=== PATIENT | female | born 1955 | race Caucasian/White ===

== ENCOUNTER 2022-01-04 17:39 | Emergency (ER) | payer BC ==
[~2022-01-04] VITALS: Ht 160 cm; Wt 63.6 kg
[~2022-01-04 17:39] MED LIST: ONDA4TAB59 PO
[2022-01-04 19:02] LABS: BASOPHILS % (AUTO) 0.2 % (0-1); EOSINOPHILS % (AUTO) 0.3 % (0-6); HEMATOCRIT 40.6 % (35.0-45.0); HEMOGLOBIN 13.6 g/dl (12.0-16.0); LYMPHOCYTES # (AUTO) 1.3 X10'3 (1.1-4.8); LYMPHOCYTES % (AUTO) 10.6 % (21-51); MEAN CORPUSCULAR HEMOGLOBIN 29.1 PG (27.0-31.0); MEAN CORPUSCULAR HGB CONC 33.5 g/dL (33.0-36.5); MEAN CORPUSCULAR VOLUME 86.8 FL (78-98); MEAN PLATELET VOLUME 10.4 FL (7.4-10.4); MONOCYTES # (AUTO) 1.1 X10'3 (0-0.9); MONOCYTES % (AUTO) 8.9 % (2-12); NEUTROPHILS # (AUTO) 9.5 X10'3 (1.8-7.7); PLATELET COUNT 135 X10'3 (140-440); RED BLOOD COUNT 4.68 X10'6 (4.20-5.60); RED CELL DISTRIBUTION WIDTH 13.3 % (11.5-14.5); WHITE BLOOD COUNT 11.8 X10'3 (4.5-11.0)
[2022-01-04 19:09] LABS: ALANINE AMINOTRANSFERASE 81 U/L (12-78); ALBUMIN 4.1 G/DL (3.4-5.0); ALBUMIN/GLOBULIN RATIO 1.2 (1.1-1.5); ALKALINE PHOSPHATASE 89 IU/L (46-116); ANION GAP 7 (8-16); ASPARTATE AMINO TRANSFERASE 53 U/L (10-37); BILIRUBIN,TOTAL 0.7 MG/DL (0.1-1.0); BLOOD UREA NITROGEN 20 MG/DL (7-18); BUN/CREATININE RATIO 21.7 (6.6-38.0); CHLORIDE 107 MMOL/L (99-107); CREATININE 0.92 MG/DL (0.40-0.90); GLUCOSE 165 MG/DL (70-104); LIPASE 118 U/L (73-393); POTASSIUM 3.8 MMOL/L (3.5-5.1); SODIUM 141 MMOL/L (135-145); TOTAL CARBON DIOXIDE 27.5 MMOL/L (24-32); TOTAL PROTEIN 7.5 G/DL (6.4-8.2); eGFR 61 ML/MIN
[2022-01-04] MEDS ORDERED: morphine 4 MG/ML inj SYRINge IV ONE (21:20)
[2022-01-04] MEDS ORDERED: ondansetron/PF 4mg/2ml inj IV ONE (21:20)
[2022-01-04] MEDS ORDERED: normal saline 1000ml 1,000 ML IV ONE (21:20)
[2022-01-04] MEDS ORDERED: iohexol 300mg/ml 100ml inj. ONE (21:21)
[2022-01-04] MEDS ORDERED: LIDOcaine Viscous 15ml cup MM ONE (22:45)
[2022-01-04] MEDS ORDERED: ketorolac trometh. 30mg/ml inj. IV ONE (22:45)
[2022-01-04] MEDS ORDERED: famotidine/PF 10 mg/ml inj IV ONE (22:45)
[2022-01-04] MEDS ORDERED: mag hydrox/Alum hydrox/simeth 30ml oral suspension PO ONE (22:45)
[2022-01-04] MEDS ORDERED: fentaNYL/PF 50MCG/1 ML 2ML syringe IV ONE (22:45)
[2022-01-04] MEDS ORDERED: pantoprazole 40MG/NS 100ML BAG 100 ML IV ONE (22:45)
[2022-01-04] MEDS ORDERED: LORazepam 2 mg/ml vial IV ONE (22:55)
[2022-01-05] MEDS ORDERED: HYDR-3965 PO (00:29)
[2022-01-05] MEDS ORDERED: PANT-47 PO (00:29)
[2022-01-05 00:30] LABS: CLARITY,URINE CLEAR (Clear); COLOR,URINE YELLOW (Yellow); GLUCOSE, URINE NEGATIVE (Neg); KETONES,URINE NEGATIVE (Neg); LEUKOCYTE ESTERASE ,URINE SMALL (Neg); NITRITES, URINE NEGATIVE (Neg); OCCULT BLOOD,URINE NEGATIVE (Neg); PH,URINE 5.5 (4.8-8.0); PROTEIN,URINE NEGATIVE (Neg); UROBILINOGEN,URINE 0.2 E.U/dL (0.2-1.0)
[2022-01-05 00:45] LABS: UA COLLECTION TYPE CLN CATCH MIDSTREAM
[2022-01-05 00:46] LABS: BACTERIA,URINE 1+ /HPF (Neg); RBC,URINE NONE SEEN /HPF (0-2); SQUAMOUS EPITHELIAL CELL,UR FEW /LPF (FEW); WBC CLUMPS,URINE FEW /HPF (NEGATIVE)
[2022-01-05 01:00] VITALS: BP 128/72
== END 2022-01-05 01:03 | disposition home or self-care (01) ==
LOC: ER 17:40
DX: G89.18 Other acute postprocedural pain (principal); R10.84 Generalized abdominal pain; R60.0 Localized edema; E11.9 Type 2 diabetes mellitus without complications; Z79.899 Other long term (current) drug therapy
CPT/HCPCS: 36415; 74177; 80053; 81001; 83690; 83880; 84145; 85025; 87088; 96361; 96374; 96375; 99285; C9113; J1885; J2060; J2270; J2405; J3010; J3490; J7030; Q9967

== ENCOUNTER 2024-02-18 05:03 | Observation (INO) | payer BC ==
[~2024-02-18] VITALS: Ht 160 cm; Wt 74.1 kg
[~2024-02-18 05:03] MED LIST changes: +PANT-47 PO
[2024-02-18 06:03] LABS: BASOPHILS % (AUTO) 0.7 % (0-1); EOSINOPHILS # (AUTO) 0.1 X10'3 (0-0.9); EOSINOPHILS % (AUTO) 3.6 % (0-6); HEMATOCRIT 37.1 % (35.0-45.0); HEMOGLOBIN 12.1 g/dl (12.0-16.0); LYMPHOCYTES % (AUTO) 23.9 % (21-51); MEAN CORPUSCULAR HEMOGLOBIN 29.2 PG (27.0-31.0); MEAN CORPUSCULAR HGB CONC 32.6 g/dL (33.0-36.5); MEAN CORPUSCULAR VOLUME 89.4 FL (78-98); MEAN PLATELET VOLUME 10.3 FL (7.4-10.4); MONOCYTES # (AUTO) 0.4 X10'3 (0-0.9); NEUTROPHILS # (AUTO) 2.5 X10'3 (1.8-7.7); NEUTROPHILS % (AUTO) 62.8 % (42-75); PLATELET COUNT 101 X10'3 (140-440); RED BLOOD COUNT 4.15 X10'6 (4.20-5.60); RED CELL DISTRIBUTION WIDTH 13.8 % (11.5-14.5); WHITE BLOOD COUNT 4.1 X10'3 (4.5-11.0)
[2024-02-18 06:14] LABS: D-DIMER 0.31 MG/L FEU (0-0.50)
[2024-02-18 06:17] LABS: ALANINE AMINOTRANSFERASE 35 U/L (12-78); ALBUMIN 3.4 G/DL (3.4-5.0); ALKALINE PHOSPHATASE 132 IU/L (46-116); ANION GAP 4 (8-16); ASPARTATE AMINO TRANSFERASE 18 U/L (10-37); BILIRUBIN,TOTAL 0.4 MG/DL (0.1-1.0); BLOOD UREA NITROGEN 17 MG/DL (7-18); BUN/CREATININE RATIO 19.5 (10.0-20.0); CHLORIDE 97 MMOL/L (99-107); CREATININE 0.87 MG/DL (0.40-0.90); GLUCOSE 168 MG/DL (70-104); SODIUM 130 MMOL/L (135-145); TOTAL CARBON DIOXIDE 28.6 MMOL/L (24-32); TOTAL PROTEIN 6.7 G/DL (6.4-8.2); eCRCL 52 ML/MIN; eGFR 65 ML/MIN
[2024-02-18 06:25] LABS: PRO BRAIN NATRIURETIC PEPTIDE 111 PG/ML (0-125)
[2024-02-18 07:03] LABS: MAGNESIUM 1.8 MG/DL (1.5-2.4)
[2024-02-18] MEDS ORDERED: CYCL-1 PO (07:11)
[2024-02-18] MEDS: orphenadrine citrate 60mg/2ml inj. IM ONE (07:18)
[2024-02-18] MEDS: BUPROPION HCL 150MG XL 24 HR 150 MG TAB PO ONE (08:01)
[2024-02-18] MEDS ORDERED: NAPR-56 PO (09:18)
[2024-02-18] MEDS: potassium Cl 20 mEq SR tablet PO ONE (09:23)
[2024-02-18] MEDS: naproxen 500mg tablet PO ONE (09:25)
[2024-02-18] MEDS: magnesium oxide 400mg tablet PO ONE (09:37)
[2024-02-18 09:54] LABS: C-REACTIVE PROTEIN 0.12 MG/DL (0.0-0.5)
[2024-02-18] MEDS: HYDROmorphone 1 mg/ml syringe IM ONE (11:25)
[2024-02-18] MEDS ORDERED: potassium Cl 40MEQ/1/2NS 520ml 520 ML IV PRN (12:25)
[2024-02-18] MEDS ORDERED: magnesium sulf-water 2g/50mL 50 ML IV PRN (12:25)
[2024-02-18] MEDS ORDERED: magnesium sulf-water 4G/100mL 100 ML IV PRN (12:25)
[2024-02-18] MEDS ORDERED: potassium Cl 20 mEq SR tablet PO PRN (12:25)
[2024-02-18] MEDS ORDERED: acetaminophen 325mg tablet PO PRN (12:25)
[2024-02-18] MEDS ORDERED: magnesium Cl slow-release 64mg tablet PO PRN (12:25)
[2024-02-18 12:40] LABS: URINE AMPHETAMINE SCREEN NEGATIVE (Neg); URINE BARBITUATE SCREEN NEGATIVE (Neg); URINE BENZODIAZEPINES SCREEN NEGATIVE (Neg); URINE CANNABINOID SCREEN NEGATIVE (Neg); URINE COCAINE SCREEN NEGATIVE (Neg); URINE METHADONE SCREEN NEGATIVE (Neg); URINE OPIATE SCREEN POSITIVE (Neg); URINE PHENCYCLIDINE SCREEN NEGATIVE (Neg)
[2024-02-18] MEDS ORDERED: INSU200I4 SQ (13:44)
[2024-02-18] MEDS ORDERED: GABA300C PO (13:44)
[2024-02-18] MEDS ORDERED: METF-900 PO (13:44)
[2024-02-18] MEDS ORDERED: FURO20TA4 PO (13:44)
[2024-02-18] MEDS ORDERED: ALBUTEROL INH (13:44)
[2024-02-18] MEDS ORDERED: INSU100I8 SQ (13:44)
[2024-02-18] MEDS ORDERED: TRAM50TA2 PO (13:44)
[2024-02-18] MEDS ORDERED: BUPR-561 PO (13:44)
[2024-02-18] MEDS ORDERED: IBUP-1984 PO (13:44)
[2024-02-18] MEDS ORDERED: CARV12.549 PO (13:44)
[2024-02-18] MEDS ORDERED: ATOR40TA72 PO (13:44)
[2024-02-18] MEDS ORDERED: LEVO100T78 PO (13:44)
[2024-02-18] MEDS ORDERED: LORazepam 2 mg/ml vial IV ONE (14:25)
[2024-02-18 15:46] LABS: HEMOGLOBIN A1C 9.3 % (4.5-6.2)
[2024-02-18] MEDS: ondansetron/PF 4mg/2ml inj IV PRN (16:06)
[2024-02-18] MEDS: morphine 2 MG/ML inj. syringe IV PRN (16:08)
[2024-02-18] MEDS: diazepam inj 5 MG/ML inj. IV ONE (16:30)
[2024-02-18 19:00] VITALS: BP 146/69; PULSE 72
[2024-02-18] MEDS: potassium Cl 20 mEq SR tablet PO PRN (19:06)
[2024-02-18] MEDS: HYDROcodone/acetaminophen 5mg/325mg tablet PO PRN (19:08)
[2024-02-18] MEDS: K and/or MAG REPLACEMENT MC SCH (20:00)
[2024-02-18] MEDS: normal saline 1000ml 1,000 ML IV SCH (21:28)
[2024-02-18] MEDS: furosemide 20MG tablet PO ONE (21:28)
[2024-02-18] MEDS: gabapentin 300mg capsule PO ONE (21:28)
[2024-02-18 21:51] VITALS: PULSE 78; RESP 16; O2SAT 96
[2024-02-18] MEDS: albuterol 2.5 MG/3 ML nebule NEB PRN (21:51)
[2024-02-18 21:58] VITALS: PULSE 71; RESP 16
[2024-02-18 22:00] VITALS: BP 152/66; PULSE 86; RESP 17; TEMP 96.8; O2SAT 96
[2024-02-18 22:48] VITALS: BP 159/95; PULSE 73; RESP 20
[2024-02-18] MEDS: HYDROmorphone inj. 0.5 MG/0.5 ML DISP.SYRIN IV ONE (23:20)
[2024-02-19 01:36] VITALS: BP 128/69; PULSE 65; RESP 16; TEMP 98.5; O2SAT 96
[2024-02-19] MEDS: HYDROmorphone inj. 0.5 MG/0.5 ML DISP.SYRIN IV ONE (05:12)
[2024-02-19 05:22] VITALS: BP 127/69; PULSE 63
[2024-02-19 05:37] LABS: ALBUMIN 3.2 G/DL (3.4-5.0); ANION GAP 6 (8-16); BLOOD UREA NITROGEN 12 MG/DL (7-18); BUN/CREATININE RATIO 15.8 (10.0-20.0); CALCIUM 8.5 MG/DL (8.5-10.1); CHLORIDE 107 MMOL/L (99-107); CREATININE 0.76 MG/DL (0.40-0.90); GLUCOSE 171 MG/DL (70-104); SODIUM 140 MMOL/L (135-145); TOTAL CARBON DIOXIDE 26.7 MMOL/L (24-32); eCRCL 59 ML/MIN; eGFR 76 ML/MIN
[2024-02-19 05:56] LABS: BASOPHILS % (AUTO) 0.5 % (0-1); EOSINOPHILS # (AUTO) 0.1 X10'3 (0-0.9); EOSINOPHILS % (AUTO) 3.1 % (0-6); HEMATOCRIT 38.5 % (35.0-45.0); HEMOGLOBIN 12.7 g/dl (12.0-16.0); LYMPHOCYTES % (AUTO) 24.1 % (21-51); MEAN CORPUSCULAR HEMOGLOBIN 29.6 PG (27.0-31.0); MEAN CORPUSCULAR HGB CONC 32.9 g/dL (33.0-36.5); MEAN PLATELET VOLUME 10.1 FL (7.4-10.4); MONOCYTES # (AUTO) 0.4 X10'3 (0-0.9); MONOCYTES % (AUTO) 9.5 % (2-12); NEUTROPHILS # (AUTO) 2.6 X10'3 (1.8-7.7); NEUTROPHILS % (AUTO) 62.8 % (42-75); PLATELET COUNT 102 X10'3 (140-440); RED BLOOD COUNT 4.28 X10'6 (4.20-5.60); RED CELL DISTRIBUTION WIDTH 13.7 % (11.5-14.5); WHITE BLOOD COUNT 4.1 X10'3 (4.5-11.0)
[2024-02-19 06:00] VITALS: BP 145/47; PULSE 61; RESP 18; TEMP 97.8; O2SAT 97
[2024-02-19 08:00] VITALS: RESP 18; O2SAT 97
[2024-02-19] MEDS ORDERED: PERFLUTREN PROTEIN-A MICROSPHR (Optison) 0.22 MG/ML 3ML VIAL IV ONE (10:20)
[2024-02-19] MEDS ORDERED: ALBUTEROL INH PRN (10:35)
[2024-02-19 12:07] VITALS: PULSE 67; RESP 20; O2SAT 97
[2024-02-19] MEDS: ibuprofen tablet 400 MG TABLET PO SCH (12:15)
[2024-02-19] MEDS: gabapentin 300mg capsule PO SCH (12:15)
[2024-02-19] MEDS: levoTHYROXINE 100mcg tablet PO SCH (12:15)
[2024-02-19] MEDS ORDERED: dextrose 50%-water 50ml dispensing syringe IV PRN ×2 (12:40)
[2024-02-19] MEDS ORDERED: glucagon, human recombinant 1mg kit SUBCUT PRN (12:40)
[2024-02-19] MEDS ORDERED: DEXTROSE 15 GM of carb/4 tabs (each vial/BOTTLE has 4 tablets) PO PRN ×2 (12:40)
[2024-02-19] MEDS: BUPROPION HCL 150MG XL 24 HR 150 MG TAB PO SCH (13:22)
[2024-02-19] MEDS: traMADol 50MG tablet PO PRN (13:23)
[2024-02-19] MEDS: INSULIN LISPRO 100 UNIT/ML INSULN.PEN MULTI-DOSE SQ SCH (13:30)
[2024-02-19 16:16] VITALS: RESP 18
[2024-02-19] MEDS ORDERED: INSULIN LISPRO 100 UNIT/ML INSULN.PEN MULTI-DOSE SQ SCH (17:00)
[2024-02-19] MEDS ORDERED: carVEDilol 12.5mg tablet PO SCH (20:00)
[2024-02-20] MEDS ORDERED: HYDR-3965 PO (02:50)
[2024-02-20] MEDS ORDERED: atorvastatin 20mg tablet PO SCH (08:00)
[2024-02-20] MEDS ORDERED: INSULIN DEGLUDEC 20 UNIT SQ SCH (08:00)
[2024-02-20] MEDS ORDERED: POTA-208 PO (19:54)
== END 2024-02-19 16:42 | disposition home or self-care (01) ==
LOC: ER 05:04 → ED HOLD 13:40 → PCU 3S 17:29
PROVIDERS: ADMIT Internal Medicine; ATTEND Internal Medicine
DX: M79.605 Pain in left leg (principal); M79.604 Pain in right leg; R06.02 Shortness of breath; E87.1 Hypo-osmolality and hyponatremia; E87.6 Hypokalemia; E11.9 Type 2 diabetes mellitus without complications; E03.9 Hypothyroidism, unspecified; E78.5 Hyperlipidemia, unspecified; M47.812 Spondylosis without myelopathy or radiculopathy, cervical region; M54.42 Lumbago with sciatica, left side; F32.A Depression, unspecified; I10 Essential (primary) hypertension; Z87.891 Personal history of nicotine dependence; Z79.899 Other long term (current) drug therapy
CPT/HCPCS: 36415; 70450; 71045; 72100; 72128; 72131; 72148; 72170; 80048; 80053; 80305; 82948; 83036; 83735; 83880; 84484; 85025; 85379; 85651; 86140; 87081; 93005; 93306; 94640; 94760; 96361; 96372; 96374; 96375; 96376; 97116; 97161; 97530; 99285; G0378; J1170; J1815; J2270; J2360; J2405; J3360; J7030

== ENCOUNTER 2024-02-20 01:53 | Emergency (ER) | payer BC ==
[~2024-02-20] VITALS: Ht 160 cm; Wt 74.1 kg
[~2024-02-20 01:53] MED LIST changes: +ALBUTEROL INH; +ATOR40TA72 PO; +BUPR-561 PO; +CARV12.549 PO; +FURO20TA4 PO; +GABA300C PO; +IBUP-1984 PO; +INSU100I8 SQ; +INSU200I4 SQ; +LEVO100T78 PO; +METF-900 PO; -ONDA4TAB59 PO; -PANT-47 PO; +TRAM50TA2 PO
[2024-02-20] MEDS ORDERED: HYDR-3965 PO (02:50)
[2024-02-20] MEDS: HYDROcodone/acetaminophen 5mg/325mg tablet PO ONE (02:51)
[2024-02-20] MEDS: TETanus/Pertussis (Acell)/Diphther VAC/PF (Tdap-Adult) 0.5ml syringe IMVAC ONE (02:54)
[2024-02-20 03:04] VITALS: BP 143/68; PULSE 73; RESP 16; TEMP 98.4; O2SAT 97
[2024-02-20] MEDS ORDERED: POTA-208 PO (19:54)
== END 2024-02-20 04:35 | disposition home or self-care (01) ==
LOC: ER 01:54
DX: S01.81XA Laceration without foreign body of other part of head, initial encounter (principal); G89.29 Other chronic pain; M54.9 Dorsalgia, unspecified; E11.9 Type 2 diabetes mellitus without complications; Z88.8 Allergy status to other drugs, medicaments and biological substances; Z79.899 Other long term (current) drug therapy; Z79.1 Long term (current) use of non-steroidal anti-inflammatories (NSAID); Z79.84 Long term (current) use of oral hypoglycemic drugs; W18.39XA Other fall on same level, initial encounter; Y93.89 Activity, other specified; Y92.89 Other specified places as the place of occurrence of the external cause; Y99.8 Other external cause status
CPT/HCPCS: 12011; 90471; 90715; 99283

== ENCOUNTER 2024-02-22 19:46 | Emergency (ER) | payer BC ==
[~2024-02-22] VITALS: Ht 160 cm; Wt 66.8 kg
[~2024-02-22 19:46] MED LIST changes: +HYDR-3965 PO; +POTA-208 PO
[2024-02-22 20:25] LABS: BASOPHILS % (AUTO) 0.4 % (0-1); EOSINOPHILS # (AUTO) 0.2 X10'3 (0-0.9); EOSINOPHILS % (AUTO) 2.6 % (0-6); HEMATOCRIT 42.8 % (35.0-45.0); HEMOGLOBIN 13.9 g/dl (12.0-16.0); LYMPHOCYTES % (AUTO) 16.2 % (21-51); MEAN CORPUSCULAR HEMOGLOBIN 29.5 PG (27.0-31.0); MEAN CORPUSCULAR HGB CONC 32.6 g/dL (33.0-36.5); MEAN CORPUSCULAR VOLUME 90.6 FL (78-98); MEAN PLATELET VOLUME 10.7 FL (7.4-10.4); MONOCYTES # (AUTO) 0.5 X10'3 (0-0.9); MONOCYTES % (AUTO) 8.2 % (2-12); NEUTROPHILS # (AUTO) 4.6 X10'3 (1.8-7.7); NEUTROPHILS % (AUTO) 72.6 % (42-75); PLATELET COUNT 145 X10'3 (140-440); RED BLOOD COUNT 4.73 X10'6 (4.20-5.60); WHITE BLOOD COUNT 6.3 X10'3 (4.5-11.0)
[2024-02-22 20:32] LABS: ALANINE AMINOTRANSFERASE 43 U/L (12-78); ALBUMIN/GLOBULIN RATIO 1.1 (1.1-1.5); ALKALINE PHOSPHATASE 139 IU/L (46-116); ANION GAP 11 (8-16); ASPARTATE AMINO TRANSFERASE 18 U/L (10-37); BILIRUBIN,TOTAL 0.5 MG/DL (0.1-1.0); BLOOD UREA NITROGEN 31 MG/DL (7-18); BUN/CREATININE RATIO 31.6 (10.0-20.0); CALCIUM 9.7 MG/DL (8.5-10.1); CHLORIDE 103 MMOL/L (99-107); CREATININE 0.98 MG/DL (0.40-0.90); GLUCOSE 111 MG/DL (70-104); POTASSIUM 3.8 MMOL/L (3.5-5.1); SODIUM 142 MMOL/L (135-145); TOTAL CARBON DIOXIDE 27.8 MMOL/L (24-32); TOTAL PROTEIN 7.8 G/DL (6.4-8.2); eCRCL 44 ML/MIN; eGFR 57 ML/MIN
[2024-02-22 20:40] LABS: PRO BRAIN NATRIURETIC PEPTIDE 74 PG/ML (0-125)
[2024-02-22 22:06] VITALS: O2SAT 98
[2024-02-22 23:01] VITALS: BP 143/73; PULSE 65; RESP 16
[2024-02-22] MEDS ORDERED: HYDR-3686 PO (23:18)
[2024-02-22] MEDS: hydrOXYzine 25 MG tablet PO ONE (23:31)
[2024-02-23 00:04] VITALS: TEMP 98.6
== END 2024-02-23 00:06 | disposition home or self-care (01) ==
LOC: ER 19:47
DX: R07.9 Chest pain, unspecified (principal); F41.9 Anxiety disorder, unspecified; E11.9 Type 2 diabetes mellitus without complications; Z88.8 Allergy status to other drugs, medicaments and biological substances; Z79.899 Other long term (current) drug therapy; Z79.84 Long term (current) use of oral hypoglycemic drugs; Z79.1 Long term (current) use of non-steroidal anti-inflammatories (NSAID); Z79.4 Long term (current) use of insulin
CPT/HCPCS: 36415; 71045; 80053; 83880; 84484; 85025; 93005; 99285; Q0177